=== PATIENT | male | born 1990 | race Caucasian/White ===

== ENCOUNTER 2025-01-17 01:59 | Emergency (ER) | payer MEDICAID, SELFPAY ==
[2025-01-17 02:09] VITALS: BP 138/96; PULSE 76; RESP 16; TEMP 36.9; O2SAT 98; BMI 28.5
--- NOTE | 2025-01-17 02:14 | ED_ITS ---
HPI - Wound/Laceration General Chief Complaint: Wound/Laceration Stated Complaint: Lt Arm Deep Laceration Time Seen by Provider: 01/17/25 02:13 Source: patient, RN notes reviewed and old records reviewed Mode of arrival: Ambulatory Limitations: no limitations History of Present Illness HPI narrative: 74-year-old male history of depression and manic/depressive disorder. Patient was seen by myself on 01/14/2025 with superficial laceration did meet with the [facility] was felt to be safe to discharge home and was set up with [facility]. Returns tonight states he was intoxicated and swinging his knife around and accidentally cut his arm he states he does not wish to kill himself he does not wish to he denies any intent to harm or kill himself. Does note that had alcohol this evening. States he has not had any of the last several days accept on 01/14/2025 when he was last seen. Denies any thoughts of harming others. Denies hallucinations. 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 Related Data Allergies Allergy/AdvReac Type Severity Reaction Status Date / Time No Known Drug Allergies Allergy Verified 01/17/25 02:09 Review of Systems Review of Systems ROS Unobtainable: All systems reviewed & are unremarkable except as noted in HPI and below Patient History tobacco type: cigarettes and vaping Exam Narrative Exam Narrative: GENERAL: Alert and oriented x three, male in mild distress HEENT: Head normocephalic, atraumatic, EOMI, pupils reactive, face symmetric, moist mucous membranes NECK: Supple, full range of motion CARDIOVASCULAR: Regular rate and rhythm without murmurs, rubs or gallops. RESPIRATORY: Breath sounds equal bilaterally, no wheezes rales or rhonchi. ABDOMEN: Soft, nontender. Normoactive bowel sounds all 4 quadrants. No guarding or rebound, rigidity, no mass : No CVA tenderness EXTREMITIES: Normal range of motion, no clubbing or edema. Neurovascularly intact. Laceration to left forearm, 6cm, gaping, subcutaneous tissue exposed. Full range of motion, normal sensation, no tendon or fascia exposed. NEUROLOGICAL: Cranial nerves II through XII grossly intact. Moving all extremities SKIN: Warm, dry, no petechiae, no rashes or lesions. Initial Vital Signs Initial Vital Signs: Vital Signs Temperature 98.4 F 01/17/25 02:09 Pulse Rate 76 01/17/25 02:09 Respiratory Rate 16 01/17/25 02:09 Blood Pressure 138/96 H 01/17/25 02:09 Pulse Oximetry 98 01/17/25 02:09 Oxygen Delivery Method Room Air 01/17/25 02:09 Procedures Laceration Repair Laceration 1: Site: upper extremity Side (If applicable): left Size (cm): 6 Description: linear and clean Depth: simple, single layer Local Anesthetic: lidocaine 2% Pre-repair: wound explored, irrigated extensively and deep structures intact Skin layer suture size: 4-0 Number of sutures: 12 Technique: simple, interrupted Course Orders Ordered: ED Orders 01/17/25 03:38 Consult to [employer] - [employer] Finisher Stat Discontinued Medications Bacitracin (Bacitracin Oint 0.9 Gm Pckt) 1 applic TOP NOW ONE Stop: 01/17/25 03:33 Last Admin: 01/17/25 03:42 Dose: 1 applic Documented By: RODNEY Bacitracin (Bacitracin Oint 0.9 Gm Pckt) 1 applic TOP NOW ONE Stop: 01/17/25 03:38 Last Admin: 01/17/25 03:51 Dose: Not Given Documented By: RODNEY Lidocaine HCl (Lidocaine 2% Inj Mdv 20ml) 10 ml INJ NOW ONE Stop: 01/17/25 02:46 Last Admin: 01/17/25 02:51 Dose: 10 ml Documented By: ROBBY Vital Signs Vital signs: Vital Signs - 8 hr 01/17/25 02:09 01/17/25 03:52 Temperature 98.4 F 98.3 F Pulse Rate 76 98 H Respiratory Rate 16 18 Blood Pressure 138/96 H 133/86 Pulse Oximetry 98 99 Oxygen Delivery Method Room Air Room Air MDM - Wound/Laceration MDM Narrative Medical decision making narrative: laceration repair. Had long discussion with the patient he has been drinking this evening, he states that he does not wish to help kill himself or harm himself. He states this was unintentional but it is deeper than in his laceration from the day before. After long discussion patient states he has been meeting with them caught, he is in process of setting up with counseling including CBT. Also getting set up with medications. Patient expresses interest in attending AA meetings in from his description sounds like alcohol maybe a trigger. He notes that he did not have any alcohol with the last several days until this evening. He contracts for safety. He was able to provide me the number for [facility] as well. Reached out to [facility] team. Patient states he has been meeting with them. I spoke with [facility] dispatch who states patient has had meetings. They cannot see the schedule but can reach out to the team to make sure a meeting is scheduled for today. Spoke with [facility] who called back. Reviewed findings and workup from today. Would not dispatch at this time. Plan for [facility] to reach out today. Per [facility] appears they are scheduled. Discharge Plan Departure Patient Disposition: Home Clinical Impression: Laceration of forearm, Alcohol intoxication Instructions: DI for Laceration Repair Activity Restrictions/Additional Instructions: Follow up with your [facility] team during the day. I did reach out to them overnight. I would recommend alcohol cessation. Wound Care: Keep wound(s) clean and dry. Wash daily with soap and water only. Do not use over the counter products (alcohol or peroxide)on the wounds unless instructed by a physician. If wound condition worsens (increased/expanding redness, developing fluid blisters, or worsening pain), either contact your doctor for an urgent re- assessment , or return to the Emergency Department. Return to the ED, urgent care, or visit a primary care doctor for removal of sutures in 7-10 days. Return if fever greater than 100.4 Fahrenheit, increased swelling, increasing pain or worsening symptoms such as increased discharge or spreading redness. If you're feeling suicidal or having suicidal thoughts, contact the suicide hotline: . Stand Alone Forms: Patient Portal/API
[2025-01-17] MEDS: LIDOCAINE 2% INJ MDV 20ML 10 ML INJ (02:51)
--- NOTE | 2025-01-17 02:58 | PC.NURSE ---
pt stating that pain has started to increase in his L arm after laceration. Provider in room for repair
--- NOTE | 2025-01-17 03:32 | PC.NURSE ---
Laceration on L forearm repaired with [address] Murillo
[2025-01-17] MEDS: BACITRACIN OINT 0.9 GM PCKT 1 APPLIC TOP (03:42)
[2025-01-17 03:52] VITALS: BP 133/86; PULSE 98; RESP 18; TEMP 36.8; O2SAT 99
--- NOTE | 2025-01-19 19:02 | CM.SWNOTE ---
Addendum entered by DELIA Arias 01/19/25 19:47: Addendum: DCR Robert reached out to this GUEST RELATIONS COORDINATOR and confirmed that pt followed with safety planning completed with ED Provider on 01/17; pt is engaged with the Mobile Crisis Outreach Team. No further follow up necessary at this time. MARIN Wilkes Original Note: ED GUEST RELATIONS COORDINATOR Follow Up Note: Reviewed EMR, received consult from overnight ED Provider to follow up with patient as there were previous [facility] referrals in the past. Due to the patient's presentation on 01/18 of a forearm laceration and ETOH use, there is a concern for self-harm. ED Provider completed safety plan with pt to discharge home and follow up with scheduled [facility] appt on 01/19 at 10:00am. This GUEST RELATIONS COORDINATOR was notified by other ED SW on Monday, 01/17 to be aware of patient future presentations - [facility] following pt and if he presents to ED again for similar reasons, this might be grounds for detainment for ETOH use and grave disability. Per EMR, ED Provider called Crisis Team to request [facility] dispatch. Per DCR, pt is unlikely to be detained and confirmed that pt has been following with [facility] team since initial referral on 01/14. No longer meets criteria for detainment per DCR on 01/18. ED GUEST RELATIONS COORDINATOR called pt via phone number on file, ph# [phone], it seems phone number has been disconnected. ED GUEST RELATIONS COORDINATOR calls [facility], spoke with LAYLA Torres to follow up with this GUEST RELATIONS COORDINATOR when available to confirm that pt did follow with [facility] referral and if further coordination of care needed. Plan: Pending [facility] confirmation call that no further coordination care needed. MARIN Wilkes
== END 2025-01-17 03:54 | disposition home or self-care (01) ==
PROVIDERS: Emergency Provider Emergency Medicine
DX: S51.812A Laceration without foreign body of left forearm, initial encounter (principal); F10.129 Alcohol abuse with intoxication, unspecified; W26.0XXA Contact with knife, initial encounter; Z72.0 Tobacco use
CPT/HCPCS: 12002; 99283

== ENCOUNTER 2025-01-24 20:18 | Emergency (ER) | payer OTHER, SELFPAY ==
[2025-01-24 20:34] VITALS: BP 131/89; PULSE 90; RESP 17; TEMP 37.2; O2SAT 98; BMI 29.9
--- NOTE | 2025-01-24 21:34 | PC.NURSE ---
Accidently undid initial triage. Triage was re-entered.
== END 2025-01-24 21:50 | disposition left against medical advice (07) ==
PROVIDERS: Emergency Provider Emergency Medicine
CPT/HCPCS: 99281